=== PATIENT | female | born 2005 | race Caucasian/White ===

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

== ENCOUNTER 2024-11-03 08:09 | Outpatient (CLI) | payer OTHER, SELFPAY ==
--- NOTE | ~2024-11-03 | US_ITS ---
US pelvic complete w TV Ordering provider: April Schaffer APRN History: . N92.6 - Irregular menstruation, unspecified . Comparison: None. Technique: Transabdominal and endovaginal ultrasound of the pelvis (Doppler ultrasound interrogation techniques used as needed for this exam.) FINDINGS: CERVIX: Normal. UTERUS: Measures 8.4x 2.9x 4.5 cm in length which is within normal limits and is anteverted. No myom etrial masses. ENDOMETRIUM: Normal in thickness measuring 5 mm. No endometrial masses, or cysts. Tiny amount of flui d is seen in the endometrial cavity. CUL DE SAC: No free fluid. RIGHT OVARY: Normal in size measuring 3.3x 3.3x 3.7 cm. Normal echotexture. Doppler vascular flow pre sent. Cyst is seen in the right ovary measuring 1.5 x 1.1 x 1.7 cm. Follicles are also noted. LEFT OVARY: Normal in size measuring 2.6x 3.3x 1.9 cm. Normal echotexture. Doppler vascular flow pres ent. Cyst is seen measuring 1.2 x 1.3 x 0.8 cm. ADNEXA: Normal. No mass. IMPRESSION: Bilateral ovarian cysts. Minimal fluid in the endometrial cavity. Otherwise, normal pelvic ultrasound . Reviewed, dictated and finalized at location A. IMPRESSION: Bilateral ovarian cysts. Minimal fluid in the endometrial cavity. Otherwise, no rmal pelvic ultrasound.
--- OUTSIDE RECORDS SUMMARY | 2024-11-03 08:17 | XMS_ITS | Data Portability ---
Author Organization [facility] [employer], Main Office Address [address] [place] [address] Assessment No assessment recorded. Plan of Treatment Reminders Order Date Submit Date Provider Last Modified By Organization Details Last Modified Time Details Appointments None recorded. Lab celiac disease comprehensi ve panel, serum 2022 023 MAURICE [facility], [address], [place], [address], 09:26:55 CMP, serum or plasma 2022 023 [email or web address] 146 [facility], [address], [place], [address], 3 15:46:52 food allergen panel, serum 2022 023 [email or web address] 146 [facility], [address], [address], [place], [address], 3 15:46:52 CBC w/ auto diff 2022 023 [email or web address] 146 [facility], [address], [address], [place], [address], 3 15:46:52 unlisted lab - allergen profile, food-milk 2022 023 [email or web address] 146 [facility], [address], [address], [place], [address], 15:46:53 lipid panel, serum 2022 023 [email or web address] 146 [facility], [address], [address], [place], [address], 15:46:53 Referral None recorded. Procedures None recorded. Surgeries None recorded. Imaging None recorded. Medication Orders famotidine 20 mg tablet 2022 023 [email or web address] [id number], [address], [place], [place], [id number], 23:03:36 Patient TargetsNo targets recorded. Patient InstructionsNo instructions recorded. Reason for Referral None Reported. Results Created Date Observation Date Name Description Value Unit Range Abnormal Flag Note LastModifiedBy Organization Detail LastModifiedTime 04/18/2004/18/2021 MRI, brain , w/wo contr ast No observ ation record ed. [id number] [facility] [address], [place], [address], 08/15/2022 07:38:41 05/16/2004/18/2021 MRI, brain , w/wo contr ast No observ ation record ed. [id number] [facility] [address] , [place], [address], 08/15/2022 07:38:41 Result Notes None recorded. Problems Name Problem SNOMED Code Status Onset Date Resolution Date Notes Provider Name and Address Organization Details Recorded Time Otalgia 19881719 Active 2021 Not Available [facility] 3 07:32:38 Generalized anxiety disorder 89047597 Active 2019 Not Available [facility] 3 07:32:38 Anterior knee pain 745675885 Active Not Available [facility] 3 07:32:39 Contact dermatitis 15059935 Active Not Available [facility] 3 07:32:39 Pharyngitis 962212931 Active Not Available [facility] 3 07:32:39 Injury of ligament of knee 212932869 Active Not Available [facility] 3 07:32:39 Concussion with no loss of consciousness 31590469 Active 2016 Not Available [facility] 3 07:32:39 Hyperglycemia 18288047 Active 2021 Not Available [facility] 3 07:32:39 Abdominal bloating 376829592 Active 2022 CASSIE Nova [address] [facility], [address], [place], [address] , [facility] [employer] [facility] 3 16:30:18 Problem Notes None recorded. Procedures Surgical History Date Name Laterality Status Provider Name and Address Organization Details Recorded Time 9 procedure on patella completed Not Available [facility] 08/15/2022 07:27:21 Imaging Results Imaging Date Name Status LastModified by Organiz ation Details LastModified Time 04/18/2021 MRI, brain, w/wo contrast completed [id number] [facility] [address] , [place], [address], 08/15/2022 07:38:41 04/18/2021 MRI, brain, w/wo contrast completed [id number] [facility] [address] , [place], [address], 08/15/2022 07:38:41 Procedure Notes None recorded. Medical Equipment None Reported. Allergies No known drug allergies Medications Name Sig Start Date Stop Date Status Note LastModified by Organization Details LastModified Time amoxicillin 500 mg capsule TAKE 1 CAPSULE BY MOUTH THREE TIMES DAILY 04/11 completed Not Available Not Available Not Available hydrocodone 5 mg-acetamin ophen 325 mg tablet TAKE 1/2 TABLET BY MOUTH EVERY 6 HOURS NEEDED FOR PAIN 04/11 completed Not Available Not Available Not Available meloxicam 15 mg tablet 04/11 completed Not Available Not Available Not Available ondansetron HCl 4 mg tablet TAKE 1 TABLET BY MOUTH EVERY 8 HOURS 04/11 completed Not Available Not Available Not Available prednisone 20 mg tablet active Not Available Not Available Not Available Tubersol 5 tub. unit/0.1 mL intradermal injection solution 0.1ml subdermal 08/24 completed [facility] # [phone] Not Available Not Available Not Available fluoxetine 10 mg tablet Take 1 tablet every day by oral route. 03/09 completed Not Available Not Available Not Available Zyrtec 10 mg tablet Take 1 tablet every day by oral route. 04/11 completed Not Available Not Available Not Available sulfamethox azole 800 mg-trimetho prim 160 mg tablet TAKE 1 TABLET BY MOUTH EVERY 12 HOURS FOR 10 DAYS 02/14 completed Not Available Not Available Not Available aspirin 81 mg tablet,mora yed release TK 1 T PO QD TO COMPLETE 6 WKS FOR DVT PREVENTIO N 04/11 completed Not Available Not Available Not Available amoxicillin 875 mg tablet Take 1 tablet every 12 hours by oral route. active Not Available Not Available No t Available famotidine 20 mg tablet Take 1 tablet every day by oral route in the morning. 2022 active Not Available Not Available Not Avai lable lorazepam 2 mg tablet TAKE 1 TABLET BY MOUTH 2 HOURS PRIOR TO SURGERY 04/11 completed Not Available Not Available Not Available oseltamivir 75 mg capsule TAKE 1 CAPSULE BY MOUTH EVERY 12 HOURS FOR 5 DAYS 02/13 completed Not Available Not Available Not Available fluoxetine 10 mg capsule TAKE 1 CAPSULE DAILY active Not Available Not Available No t Available hydroxyzine HCl 25 mg tablet 04/11 completed Not Available Not Available Not Available acetaminoph en 300 mg-codeine 60 mg tablet TAKE 1 TABLET BY MOUTH EVERY 8 HOURS NEEDED 08/24 completed Not Available Not Available Not Available prednisolon e 15 mg/5 mL oral solution G RAMON 20 ML PO BID WITH MEALS FOR 5 DAYS active Not Available Not Available No t Available mupirocin 2 % topical ointment APPLY TOPICALLY TO THE AFFECTED AREA TWICE DAILY 04/11 completed Not Available Not Available Not Available norethindro ne acetate 1 mg-ethinyl estradiol 20 mcg tablet 04/11 completed Not Available Not Available Not Available ibuprofen 600 mg tablet TAKE 1 TABLET BY MOUTH EVERY 6 HOURS 04/11 completed Not Available Not Available Not Available methylpredn isolone 4 mg tablets in a dose pack TAKE DIRECTED PER PACKAGE DIRECTION S 04/11 completed Not Available Not Available Not Available ondansetron 4 mg disintegrat ing tablet 04/11 completed Not Available Not Available Not Available fluticasone propionate 50 mcg/actuati on nasal spray,suspe nsion 04/11 completed Not Available Not Available Not Available oxycodone 5 mg tablet 04/11 completed Not Available Not Available Not Available chlorhexidi ne gluconate 0.12 % mouthwash PLACE 15 MILLITERS IN THE MOUTH BY MUCOUS MEMBRANE ROUTE 2 TIMES A DAY 04/11 completed Not Available Not Available Not Available drospirenon e 3 mg-ethinyl estradiol 0.02 mg tablet TAKE 1 TABLET BY MOUTH DAILY active Not Available Not Available No t Available Lo Loestrin Fe 1 mg-10 mcg (24)/10 mcg (2) tablet TK 1 T PO D 04/11 completed Not Available Not Available Not Available Lo Loestrin Fe 04/11 completed Not Available Not Available Not Available EpiPen 2-Jaya 0.3 mg/0.3 mL injection, auto-inject or active Not Available Not Available Not Available PreviDent 5000 Booster Plus 1.1 % dental paste 12/24 completed Not Available Not Available Not Available Blisovi Fe / (28) 1 mg-20 mcg (21)/75 mg (7) tablet TAKE 1 TABLET BY MOUTH DAILY 08/24 completed Not Available Not Available Not Available ID NOW COVID-19 Test Kit TEST DIRECTED TODAY 02/14 completed Not Available Not Available Not Available Vitals Date Recorded Body mass index (BMI) Body height Oxygen saturation Oxygen saturation in Arterial blood by Pulse oximetry Heart rate Body temperature Body weight Systolic blood pressure Diastolic blood pressure Provider Name and Address Organization Details Last Updated DateTime 1 26.5 kg/m2 160.02 cm 98 % 98 % 84 /min 97.7 [degF] 55204.1 4 g 122 mm[Hg] 90 mm[Hg] Not Available [facility] 3 07:30:22 Date Recorded Body mass index (BMI) Body height Oxygen saturation Oxygen saturation in Arterial blood by Pulse oximetry Heart rate Respiratory rate Body temperature Body weight Systolic blood pressure Diastolic blood pressure Provider Name and Address Organization Details Last Updated DateTime 2 28.9 kg/m2 160.02 cm 98 % 98 % 79 /min 16 /min 98.1 [degF] 54171.2 7 g 120 mm[Hg] 80 mm[Hg] Not Available [facility] 3 07:30:22 Date Recorded Body height Body temperature Body mass index (BMI) Percentile per age and sex Body mass index (BMI) Body weight Respiratory rate Oxygen saturation Oxygen saturation in Arterial blood by Pulse oximetry Heart rate Systolic blood pressure Diastolic blood pressure Provider Name and Address Organization Details Last Updated DateTime 3 160.02 cm 97.2 [degF] 93 % 29.4 kg/m2 53710.3 3 g 16 /min 98 % 98 % 72 /min 122 mm[Hg] 80 mm[Hg] Bernie Vega [employer] [facility] [employer] 3 11:30:12 Date Recorded Body height Body temperature Body mass index (BMI) Percentile per age and sex Body mass index (BMI) Body weight Respiratory rate Oxygen saturation Oxygen saturation in Arterial blood by Pulse oximetry Heart rate Provider Name and Address Organization Details Last Updated DateTime 3 160.02 cm 97.5 [degF] 92 % 29.6 kg/m2 03726.9 3 g 16 /min 98 % 98 % 103 /min Bernie Vega Beatriz [employer] [facility] [employer] [facility] 3 16:06:14 Date Recorded Systolic blood pressure Diastolic blood pressure Provider Name and Address Organization Details Last Updated DateTime 04/01/2023 130 mm[Hg] 80 mm[Hg] CASSIE Nova [address] [address], [place], [address], [employer] [facility] [employer] 04/14/2023 23:03:32 Social History Question Answer Notes LastModified by Organizat ion Details LastModified Time Tobacco Smoking Status Never Smoker Not Available [facility] 08/15/2022 07:27:02 What Is Your Level Of Caffeine Consumption? Occasional [id number] Information not available 08/15/2022 How Much Tobacco Do You Chew? None [id number] Information not available 08/15/2022 In The 14 Days Before Symptom Onset, Have You Had Close Contact With A Laboratory-confirm ed COVID-19 While That Case Was Ill? No [id number] Information not available 08/15/2022 In The 14 Days Before Symptom Onset, Have You Had Close Contact With A Person Who Is Under Investigation For COVID-19 While That Person Was Ill? No [id number] 0127 Information not available 08/15/2022 What Type Of Diet Are You Following? REGULAR [id number] 5140 Information not available 08/15/2022 Which Illicit Or Recreational Drugs Have You Used? None [id number] Information not available 08/15/2022 Have There Been Any Changes To Your Family Or Social Situation? No [id number].[id number] 2179 Information not available 08/15/2022 Do You Use Insect Repellent Routinely? No [id number].[id number] 1408 Information not available 08/15/2022 What Is Your Relationship Status? Single [id number].[id number] 9213 Information not available 08/15/2022 Do You Use Your Seat Belt Or Car Seat Routinely? Yes [id number].[id number] 4910 Information not available 08/15/2022 Do You Have Smoke And Carbon Monoxide Detectors In Your Home? Yes MIGRATION.[id number] 8008 Information not available 08/15/2022 How Much Tobacco Do You Smoke? No MIGRATION.450645 7258 Information not available 08/15/2022 Do You Use Sunscreen Routinely? Yes MIGRATION.595409 9373 Information not available 08/15/2022 Have You Recently Traveled Abroad? No MIGRATION.[id number] 1300 Information not available 08/15/2022 Do You Have Any Dietary Restrictions? No MIGRATION.182939 6174 Information not available 08/15/2022 Sex: Unknown Functional Status Question Answer Note LastModified by Organizat ion Details LastModified Time Do you use any illicit or recreational drugs? No [id number].[id number] 9362 Information not available 08/15/2022 Do you or have you ever used any other forms of tobacco or nicotine? No MIGRATION.[id number] 5874 Information not available 08/15/2022 What is your level of alcohol consumption? None [id number].[id number] 6044 Information not available 08/15/2022 Do you or have you ever used smokeless tobacco? Never used smokeless tobacco MIGRATION.780219 8044 Information not available 08/15/2022 Are you currently employed? No [email or web address] Information not available 08/24/2022 What is your occupation? student MIGRATION.[id number] 8851 Information not available 08/15/2022 Do you or have you ever used e-cigarettes or vape? Never used electronic cigarettes MIGRATION.[id number] 8216 Information not available 08/15/2022 What is your exercise level? Moderate MIGRATION.[id number] 8362 Information not available 08/15/2022 Mental Status None recorded. Family History Relationship Description Onset Age of this Age Resolved Age Notes LastModified by Organization Details LastModified Time Mother Diabetes mellitus [id number] Not available 08/15/2022 07:27:25 Mother Heart disease [id number] Not available 08/15/2022 07:27:25 Medical History Condition Response ANXIETY DISORDER Y Gynecological History Statement/Question Response Menses Monthly Y Current Control Method BCPs Sexually Active? N Obstetrics History GPAL:G 0 P 0 0 0 0 Immunizations Vaccine Type Date Status Note Provider Nam e and Address Organization Details Recorded Time HPV, quadrivalent 6 completed Not Available [facility] 08/15/2022 07:38:24 HPV, quadrivalent 5 completed Not Available [facility] 08/15/2022 07:38:24 meningococcal MCV4P 5 completed Not Available [facility] 08/15/2022 07:38:24 Tdap 5 completed Not Available [facility] 08/15/2022 07:38:24 HPV, quadrivalent 4 completed Not Available [facility] 08/15/2022 07:38:24 Influenza, split virus, trivalent, preservative 2 completed Not Available [facility] 08/15/2022 07:38:24 meningococcal MCV4P 0 completed Not Available [facility] 08/15/2022 07:38:24 Tdap 5 completed Not Available [facility] 08/15/2022 07:38:24 meningococcal MCV4P 5 completed Not Available [facility] 08/15/2022 07:38:24 HPV, quadrivalent 6 completed Not Available [facility] 08/15/2022 07:38:25 HPV, quadrivalent 5 completed Not Available [facility] 08/15/2022 07:38:25 HPV, quadrivalent 5 completed Not Available [facility] 08/15/2022 07:38:25 Tdap 4 completed Not Available [facility] 08/15/2022 07:38:25 Past Encounters Encounter ID Performer Location Encounter Start Date Encounter Closed Date Diagnosis/Indication Diagnosis SNOMED-CT Code Diagnosis ICD10 Code Diagnosis Note [id number] CASSIE Nova [facility] [address] [place] [address] 04/11/2021 00:00:00 04/16/2021 23:14:51 [id number] Petr Gtz MD [facility] [address] [place] [address] 02/14/2022 00:00:00 02/14/2022 13:55:16 [id number] CASSIE Nova [facility] [address] [place] [address] 08/27/2022 10:44:17 08/27/2022 12:01:03 Generalized anxiety disorder 29691177 F41.1 stable on fluoxetine 10mg daily and paperwork completed for college testing. [id number] CASSIE Nova [facility] [address] [place] [address] 04/01/2023 15:58:12 04/01/2023 16:37:49 Adult health examination 678116103 Z00.01 well exam completed. Abdominal bloating 64510 9008 R14.0 screening celiac panel, cmp, food allergy panel, cbc, allergen milk panel. trial of famotidine 20mg daily. Cholesterol screening 27 0220920 Z13.220 fasting lipids to be included on lab screening. Health Concerns Section Related Observation LastModified by Organization Detai ls LastModified Time None Recorded Concern Status LastModified by Organization Details LastModified Time None Recorded Advance Directives Directive None Recorded Payers Encounter Date Sequence Insurance Name Policy Number Policy Mckoy Covered Member ID Mckoy Member ID Guarantor Name 08/27/2022 1 [employer] - CHOICE PLUS [id number] Yen Bean [id number] Ramon Bean 04/01/2023 1 [employer] - CHOICE PLUS [id number] Yen Bean [id number] Ramon Bean Notes Date Note Type Note Provider Name and Address Organization Details Recorded Time 04/11/2021 text/html Headache - GeneralReported bypatient.Location:un ilateral; frontal; temporal Quality:worst headache ever;burning;aching;t hrobbing;dull;sharp/s tabbing;pulsating;tig htness;pain;tension;c ontinuous Severity:pain level 10/10 Onset/Timing:gradual; Has had 13 headaches in the last 2 weeks Modifying Factors: Improved with:medication; rest / relaxation; laying in a dark room; sleep Associated Symptoms:no nausea; no slurred speech; normal feeling/sensation; no body numbness; no nosebleeds; no hoarseness; no sore throat;nausea;vomitin g;diarrhea;rhinorrhea ;sensitivity to noise;photophobia;bli nd spots;loss of appetite;with preceeding aura;double or blurry vision;dizziness;slee p disturbances Not Available [facility] 04/16/2021 23:14:51 02/14/2022 text/html Generic HPI TemplateReported bypatient.Notes:Pt states she has been checking her sugar at home. She says when she was 9 she was hypoglycemic. 2 weeks ago she was really shaky and her hands were swollen so she checked her sugar and it was 160. She doesnt eat after 8:00 so the next morning she was 110. Not Available [facility] 02/14/2022 13:55:16 08/27/2022 text/html Anxiety/Depressi onRep orted bypatient.Quality:sym ptoms worse during the day Severity:denies suicidal ideations; able to maintain relationships; does not interfere with activities of daily living;interference with school Duration:symptoms lasting over 2 weeks Onset/Timing:still present Context:no major life stressors;major life stressors(testing) Modifying Factors:rx meds Associated Symptoms:denies homicidal ideations; no significant weight gain; no significant weight loss; no visual/auditory hallucinations; no delusions; no shortness of breath;anxiety;sleep disturbances;headache s CASSIE Nova [address] [facility], [facility] [address], [place], [address], [employer] 09/14/2022 17:29:43 04/01/2023 text/html Anxiety/Depressi onRep orted bypatient.Quality:sym ptoms worse during the day Severity:denies suicidal ideations; able to maintain relationships; does not interfere with activities of daily living Duration:symptoms lasting over 2 weeks Onset/Timing:still present Context:no major life stressors;major life stressors Associated Symptoms:denies homicidal ideations; no significant weight gain; no significant weight loss; no visual/auditory hallucinations; no delusions; no shortness of breath WellnessPhysical form w/her. CASSIE Nova [address] [facility], [facility] [address], [place], [address], [facility] 04/14/2023 23:05:42 OBGyn Episode No OBEpisode recorded.
--- OUTSIDE RECORDS SUMMARY | 2024-11-03 08:17 | XMS_ITS | Clinical Summary ---
Author Organization [facility] [employer] Address [address] [place] [address] Care Team Providers Care Postal Service Mail Processor Name Role Phone Margo Guadarrama MD Primary Care Provider [phone] Source Comments [facility],non-owned Affiliates and Associated Physician Practices is amultiple site organization consisting of ambulatory clinics and hospital sitesin [place], [place], [place] and [place]. This disclosure is being madepursuant to the Care Everywhere program and may not contain all information available regarding this patient. Last updated 18.[facility] Allergies No known active allergies Medications * Be aware that medications may not be up to date on this document. Alwaysverify current medications with the patient. No known medications Active Problems Problem Noted Date Diagnosed Date Other closed fractures of distal end of radius ( alone) 12/25/2011 Social History Tobacco Use Types Packs/Day Years Used Date Smoking Tobacco: Never Alcohol Use Standard Drinks/Week Comments No 0 (1 standard drink = 0.6 oz pur e alcohol) Comments No Sex and Gender Information Value Date Recorded Sex Assigned at Not on file Legal Sex Female 5:42 AM [employer]ITY [employer] Gender Identity Female 12/29/2020 11:27 AM CDT Sexual Orientation Not on file Plan of Treatment Health Maintenance Due Date Last Done Comments HIV SCREENING 2018 HPV VACCINE (1 - 3-dose series) 2018 CHLAMYDIA/GONORRHEA SCREENING 2019 MENINGOCOCCAL (Group B) VACC INE SHARED DECISION-MAKING (1 of 2 - Standard) 2019 HEPATITIS C SCREENING 12/31/2020 DTAP/TDAP/TD VACCINES (1 - Tdap) 2022 HEPATITIS B VACCINE (1 of 3 - 19+ 3-dose series) 2022 COVID-19 VACCINE (2023-2 5 season) 2024 DEPRESSION SCREENING 06/17/2024 INFLUENZA VACCINE (Season Ended) 2025 04/28/20 12 ZOSTER VACCINE (1 of 2) 2053 HIB VACCINE Aged Out No longer eligi ble based on patient's age to complete this topic MENINGOCOCCAL GROUPS A/C/Y/W VACCINE Aged Out No longer eligible b ased on patient's age to complete this topic PNEUMOCOCCAL VACCINE Aged Out No long er eligible based on patient's age to complete this topic Insurance [facility] Care Teams Postal Service Mail Processor Relationship Specialty Start Date End Date Margo Guadarrama MD PCP - General Family Medicine 12/17/11
--- OUTSIDE RECORDS SUMMARY | 2024-11-03 08:17 | XMS_ITS | Data Portability ---
[facility] [address] [place] [address] Assessment No assessment recorded. Plan of Treatment Reminders Order Date Submit Date Provider Last Modified By Organization Details Last Modified Time Details Appointments None recorded. Lab None recorded. Referral None recorded. Procedures None recorded. Surgeries None recorded. Imaging None recorded. Medication Orders metronidazo le 500 mg tablet 2023 024 [id number], [address] , [place], [place], [id number], 17:09:52 Patient TargetsNo targets recorded. Patient InstructionsNo instructions recorded. Reason for Referral None Reported. Medical Equipment None Reported. Medications Name Sig Start Date Stop Date Status Note LastModified by Organization Details LastModified Time metronidazole 500 mg tablet Take 1 tablet every 8 hours by oral route. 2023 active Not Available Not Available Not Avai lable Vitals Date Recorded Body height Body mass index (BMI) Body weight Heart rate Oxygen saturation Oxygen saturation in Arterial blood by Pulse oximetry Systolic blood pressure Diastolic blood pressure Provider Name and Address Organization Details Last Updated DateTime 4 162.56 cm 27.6 kg/m2 03956.6 6 g 94 /min 97 % 97 % 138 mm[Hg] 72 mm[Hg] Yanci Tucker MA [facility] 4 16:26:42 Date Recorded Body temperature Respiratory rate Systolic blood pressure Diastolic blood pressure Provider Name and Address Organization Details Last Updated DateTime 02/21/2024 98.8 [degF] 18 /min 122 mm[Hg] 80 mm[Hg] CASSIE Nova Attn: [employer],[address] , [place], [address], [facility] 17:11:24 Social History Question Answer Notes LastModified by [facility] Details LastModified Time Tobacco Smoking Status Never Smoker Yanci Tucker MA null, [facility] 02/21/2024 17:25:58 What Was The Date Of Your Most Recent Tobacco Screening? 02/21/2024 Information not available 02/21/2024 Sex: Female Functional Status Question Answer Note LastModified by [facility] Details LastModified Time What is your level of alcohol consumption? Occasional little to none , 06/18 Information not available 02/21/2024 Mental Status None recorded. Family History Relationship Description Onset Age of this Age Resolved Age Notes LastModified by Organization Details LastModified Time Father Diabetes mellitus crevisma Not available 2023 17:26:12 Medical History Condition Response Coronary Artery Disease N Other N High Blood Pressure N Atrial Fibrillation N Thyroid Problems N Kidney or Bladder Problems N Blood Clots N COPD N Depression N GI Problems N Have you had a mammogram in the last yea r? N Skin Problems N Anemia N Heart Attack (MD) N Anxiety Disorder Y Diabetes N Muscle, Joint, or Bone Problems N Seizures/Epilepsy N Have you had a colonoscopy in the last 1 0 years? N Acid Reflux (GERD) N Cancer N Stroke N Asthma N Allergies Y Have you had a PSA blood test in the las t year? N High Cholesterol N Hepatitis N Liver Disease N Headaches N Heart Failure N Osteoporosis N Gynecological HistoryNo gynecological history recorded. Obstetrics History GPAL:G 0 P 0 0 0 0 Past Encounters Encounter ID Performer Location Encounter Start Date Encounter Closed Date Diagnosis/Indication Diagnosis SNOMED-CT Code Diagnosis ICD10 Code Diagnosis Note [id number] Petr Gtz MD [facility] [place] [address] [place] [address] 02/21/2024 16:21:01 02/27/2024 15:45:23 Diarrhea 65608041 R19.7 Start empiric metronidaz ole 500 mg every 8 hours x7 days. Avoid dairy for the next 72 hours and follow a BRAT diet. If symptoms do not improve or resolve contact provider and stool cultures will be ordered. Health Concerns Section Related Observation LastModified by Organization Detai ls LastModified Time None Recorded Concern Status LastModified by Organization Details LastModified Time None Recorded Advance Directives Directive None Recorded Payers Encounter Date Sequence Insurance Name Policy Number Policy Mckoy Covered Member ID Mckoy Member ID Guarantor Name 02/21/2024 1 [facility] Yen Bean [id number] [employer] Notes Date Note Type Note Provider Name and Address Organization Details Recorded Time 02/21/2024 text/html DiarrheaReported bypatient.Severity:mil d Duration:present for 1-2 weeks Onset/Timing:no nocturnal symptoms; 1-3 times a day Context:no one else with similar symptoms; no recent camping; no recent picnic; no possible food sources; no recent travel Alleviating Factors:peptobismal Aggravating Factors:eating Associated Symptoms:no abdominal pain; no excess gas; no fever; no rash; no vomiting; no blood in stool CASSIE Nova Attn: [employer],[address] [place], [address], [facility] 03/15/2024 01:00:56 OBGyn Episode No OBEpisode recorded.
== END 2024-11-03 08:10 | disposition home or self-care (01) ==
PROVIDERS: Visit Provider Nurse Practitioner Family
DX: N83.202 Unspecified ovarian cyst, left side (principal); N83.201 Unspecified ovarian cyst, right side; N92.6 Irregular menstruation, unspecified
CPT/HCPCS: 76830; 76856

== ENCOUNTER 2025-04-16 07:47 | Outpatient (CLI) | payer OTHER, SELFPAY ==
--- NOTE | ~2025-04-16 | US_ITS ---
EXAM: US right upper quadrant HISTORY: Pain COMPARISON(S): None. FINDINGS: Pancreas: It is incompletely visualized because of overlying bowel gas. The visualized portion(s) is/are normal in sonographic appearance. Aorta and proximal IVC: Grossly, no significant abnormality is seen. Liver: It shows normal echogenicity and homogenous echotexture. No hepatic lesions are demonstrated. Gallbladder: There is no cholelithiasis, wall thickening, or pericholecystic fluid. Bile ducts: The CBD measures 3 mm in diameter. This is within normal limits. There is no intrahepatic ductal dilatation seen. Right Kidney: There is normal echogenicity and cortical thickness. There are no parenchymal lesions, and there is no hydronephrosis. IMPRESSION: Normal upper abdominal ultrasound. Reviewed, dictated and finalized at location A.
== END 2025-04-16 07:48 | disposition home or self-care (01) ==
PROVIDERS: PCP Physician Assistant; Visit Provider Physician Assistant
DX: R10.11 Right upper quadrant pain (principal)
CPT/HCPCS: 76705